=== PATIENT | female | born 1975 | race Caucasian/White ===

== ENCOUNTER 2021-07-30 20:17 | Emergency (ER) | payer OTHER ==
[~2021-07-30] VITALS: Ht 172.7 cm; Wt 78.8 kg
[2021-07-30 20:56] LABS: BASO % 0.7 % (0.0-1.0); EOS # 0.1 10^3/uL (0.0-0.5); EOS % 1.5 % (0.0-3.0); HEMATOCRIT 40.1 % (36.0-47.0); HEMOGLOBIN 13.5 g/dl (12.0-15.5); LYMPH # 0.2 10^3/uL (1.5-5.0); LYMPH % 3.4 % (24.0-44.0); MEAN CORPUSCULAR HEMOGLOBIN 31.2 pg (27.0-33.0); MEAN CORPUSCULAR HGB CONC 33.7 g/dl (32.0-36.5); MEAN CORPUSCULAR VOLUME 92.6 fl (80.0-96.0); MONO # 0.5 10^3/uL (0.0-0.8); MONO % 7.3 % (2.0-8.0); NEUTROPHILS # 5.3 10^3/uL (1.5-8.5); NEUTROPHILS % 86.6 % (36.0-66.0); PLATELET COUNT, AUTOMATED 176 10^3/uL (150-450); RED BLOOD COUNT 4.33 10^6/uL (4.00-5.40); WHITE BLOOD COUNT 6.1 10^3/uL (4.0-10.0)
[2021-07-30 21:21] LABS: HCG, SERUM QUALITATIVE NEGATIVE (NEGATIVE)
[2021-07-30 21:24] LABS: ALBUMIN 3.9 GM/DL (3.2-5.2); ALT/SGPT 18 U/L (12-78); BILIRUBIN,DIRECT 0.1 MG/DL (0.0-0.2); BILIRUBIN,TOTAL 0.2 MG/DL (0.2-1.0); TOTAL PROTEIN 6.8 GM/DL (6.4-8.2)
[2021-07-30 21:25] LABS: CK-MB VALUE MASS < 1.0 NG/ML (<3.6); CPK CREATINE PHOSPHOKINASE 44 U/L (26-192); MB/CK RELATIVE INDEX 2.27 (< OR =4)
[2021-07-30] MEDS ORDERED: ISOVUE-370 76% 100ML VIAL As Ordered ONE (22:55)
[2021-07-30] MEDS ORDERED: KETOROLAC 30 MG/ML 1ML VIAL IV ONE (23:35)
[2021-07-31] MEDS ORDERED: TRAM50TA2 PO (00:15)
[2021-07-31 00:42] VITALS: BP 119/55
== END 2021-07-31 00:48 | disposition home or self-care (01) ==
LOC: M ED 20:17 → EDBD 20:17 → M ED 07-31 00:48
DX: R07.9 Chest pain, unspecified (principal); M54.50 Low back pain, unspecified; R94.31 Abnormal electrocardiogram [ECG] [EKG]; I10 Essential (primary) hypertension; E78.5 Hyperlipidemia, unspecified; I25.2 Old myocardial infarction; Z86.79 Personal history of other diseases of the circulatory system; Z95.5 Presence of coronary angioplasty implant and graft; F10.10 Alcohol abuse, uncomplicated
CPT/HCPCS: 71045; 71275; 80047; 80076; 82550; 82553; 84703; 85025; 85379; 93005; 96374; 99285; J1885; Q9967

== ENCOUNTER → 2022-07-27 | Outpatient (CLI) | payer MEDICAID, OTHER ==
[~2022-07-27] MED LIST: TRAM50TA2 PO
== END ==
LOC: M RAD 11:53
PROVIDERS: ATTEND Family Medicine
DX: E04.1 Nontoxic single thyroid nodule (principal)

== ENCOUNTER → 2022-08-17 | Outpatient (CLI) | payer OTHER ==
[2022-08-17 07:44] LABS: BASO # 0.1 10^3/uL (0.0-0.2); BASO % 0.8 % (0.0-1.0); EOS # 0.2 10^3/uL (0.0-0.5); EOS % 2.7 % (0.0-3.0); HEMATOCRIT 45.5 % (36.0-47.0); HEMOGLOBIN 15.2 g/dl (12.0-15.5); LYMPH # 1.4 10^3/uL (1.5-5.0); MEAN CORPUSCULAR HEMOGLOBIN 30.9 pg (27.0-33.0); MEAN CORPUSCULAR HGB CONC 33.4 g/dl (32.0-36.5); MEAN CORPUSCULAR VOLUME 92.5 fl (80.0-96.0); MONO # 0.7 10^3/uL (0.0-0.8); MONO % 10.4 % (2.0-8.0); NEUTROPHILS # 4.7 10^3/uL (1.5-8.5); NEUTROPHILS % 65.8 % (36.0-66.0); PLATELET COUNT, AUTOMATED 238 10^3/uL (150-450); RED BLOOD COUNT 4.92 10^6/uL (4.00-5.40); WHITE BLOOD COUNT 7.1 10^3/uL (4.0-10.0)
[2022-08-17 08:13] LABS: ALBUMIN 3.8 G/DL (3.2-5.2); ALKALINE PHOSPHATASE 80 U/L (46-116); ALT/SGPT 15 U/L (7.0-40); AST/SGOT 13 U/L (<34); BILIRUBIN,TOTAL 0.6 MG/DL (0.3-1.2); BLOOD UREA NITROGEN 12 MG/DL (9-23); CALCIUM LEVEL 8.8 MG/DL (8.5-10.1); CARBON DIOXIDE LEVEL 29 MMOL/L (20-31); CHLORIDE LEVEL 106 MMOL/L (98-107); CHOLESTEROL LEVEL 217 MG/DL (<200); CHOLESTEROL RISK RATIO 6.27 (<5); CREATININE FOR GFR 0.68 MG/DL (0.55-1.30); FREE T4 1.04 NG/DL (0.89-1.76); GLOMERULAR FILTRATION RATE > 60.0 (>58); GLUCOSE, FASTING 91 MG/DL (60-100); HDL CHOLESTEROL 34.6 MG/DL (>40); LDL CHOLESTEROL 154.2 MG/DL (<100); NON-HDL-C 182.4 MG/DL; POTASSIUM SERUM 4.6 MMOL/L (3.5-5.1); SODIUM LEVEL 140 MMOL/L (136-145); THYROID STIMULATING HORMONE 1.244 uIU/ML (0.55-4.78); TOTAL PROTEIN 6.8 G/DL (5.7-8.2); TRIGLYCERIDES LEVEL 141 MG/DL (<150)
[2022-08-17 08:18] LABS: HEMOGLOBIN A1c 5.2 % (4.0-6.0)
== END ==
LOC: M LAB 07:03
PROVIDERS: ATTEND Family Medicine
DX: E04.9 Nontoxic goiter, unspecified (principal); E66.3 Overweight

== ENCOUNTER → 2022-10-19 | Outpatient (CLI) | payer OTHER ==
[~2022-10-19] MED LIST changes: +ASPI81TA26 PO; +LIDOCAINE 1% MDV 20ML VIAL As Ordered ONE; +ROSU40TA4 PO; +VALS1TAB66 PO
[2022-10-19 09:03] VITALS: TEMP 98
[2022-10-19 09:32] VITALS: BP 168/72; O2SAT 99
== END ==
LOC: M IRPRO 08:49
PROVIDERS: ATTEND Family Medicine
DX: R89.6 Abnormal cytological findings in specimens from other organs, systems and tissues (principal)

== ENCOUNTER → 2023-12-20 | Outpatient (CLI) | payer BC ==
[~2023-12-20] MED LIST changes: -LIDOCAINE 1% MDV 20ML VIAL As Ordered ONE; -ROSU40TA4 PO; +ROSU40TA81 PO
== END ==
LOC: M LAB 10:41
PROVIDERS: ATTEND Otolaryngology
DX: E04.1 Nontoxic single thyroid nodule (principal)

== ENCOUNTER → 2025-01-28 | Outpatient (CLI) | payer BC | LOC: M WHC 08:03 | PROVIDERS: ATTEND Family Medicine | DX: R92.2 Inconclusive mammogram (principal); R92.333 Mammographic heterogeneous density, bilateral breasts ==

== ENCOUNTER → 2025-02-18 | Outpatient (CLI) | payer BC | LOC: M WHC 08:05 | PROVIDERS: ATTEND Family Medicine | DX: R92.8 Other abnormal and inconclusive findings on diagnostic imaging of breast (principal) ==